=== PATIENT | female | born 1990 | race Caucasian/White ===

== ENCOUNTER 2022-05-30 07:22 | Outpatient (CLI) | payer MEDICAID | END 2022-05-30 07:23 | disposition critical access hospital (66) | LOC: EMS 07:22 | DX: R44.3 Hallucinations, unspecified (principal) | CPT/HCPCS: A0425; A0429; A0999 ==

== ENCOUNTER 2022-05-30 07:49 | Emergency (ER) | payer MEDICAID ==
--- NOTE | 2022-05-30 08:04 | ED Physician Documentation ---
History of Present Illness - Stated complaint Stated Complaint: MHE - History obtained from History obtained from: Patient, EMS - Additonal information Additional information: The patient is brought to the emergency department by EMS from [facility] for chief complaint of hallucinations. The patient has been trying to leave [facility] as she does not want to be there, and states that her mother arranged for her to go for alcohol treatment. Patient has a longstanding history of alcohol abuse and has been at night to it for the last 2 days. She has exhibited some delusional thinking while there but has been fairly functional; however, today she was trying to leave and staff could not redirect her. They gave her a dose of lorazepam as well as Benadryl. The patient states that she just wanted to leave and did not ever want to be there in the first place, but does acknowledge that a couple days of treatment for withdrawal was helpful. She states she is 31 years old and she knows how to take care of herself and does not wish to be "locked up" any longer. She states her mother lives in [place] and she ultimately plans to get back there. [facility] staff has communicated to us that the patient's mother is coming over from [place] to meet with the patient. The medics state that the patient is alert and oriented x3 but that she did occasionally seem to be responding to some internal stimuli. However, she has been cooperative and fairly redirectable. PD PAST MEDICAL HISTORY - Present Medications Home Medications: Ambulatory Orders Medication Instructions Recorded Confirmed Amoxicillin 500 mg PO TID 7 Days #21 cap 05/30/22 PD ED PE NORMAL - Vitals Vital signs reviewed: Yes - General General: Alert and oriented X 3, No acute distress, Well developed/nourished, Other (The patient is polite and redirectable but repeatedly insisting that she wants to leave.) - HEENT HEENT: Atraumatic, PERRL, EOMI, Moist mucous membranes - Neck Neck: Supple, no meningeal sign - Cardiac Cardiac: RRR, No murmur - Respiratory Respiratory: No respiratory distress - Derm Derm: Normal color, Warm and dry, No rash - Extremities Extremities: No deformity - Neuro Neuro: Alert and oriented X 3 (Patient answers all orientation questions. She knows she is not hospital on [facility], knows it is 2022, and knows her name. She is able to recite her mother's address and phone number.), Other (Ambulatory on a steady and narrow based gait; articulates clearly; no gross deficits) - Psych Psych: Normal mood, Normal affect, Other (Patient is able to speak coherently and follow a logical train of thought in her speech. She does occasionally exhibit delusions, as in thinking her next-door neighbor, who is crying out, is a dog) PD Medical Decision Making - ED course Complexity details: considered differential, d/w patient ED course: Despite attempts to redirecting the patient to stay for more thorough evaluation, patient was insistent that she wanted to leave. She was steady on her feet, neurologically intact, and alert and oriented fully. She was able to articulate a plan for what she wanted to do when she left and despite occasional bizarre statements, I did not feel that she was gravely disabled. The patient did not want to stay voluntarily and was not suicidal or homicidal and I did not have legal reason to hold her against her will. As such, I did agree to discharge her, though she was able to talk to her mother on the phone prior to leaving and make a plan to me at the [facility] terminal. The patient did note that she has had some dental pain and was supposed to cone picker a prescription for amoxicillin in [place], but was never able to do so, and so I did give her a paper prescription for this. Departure - Departure Disposition: 01 Home, Self Care Clinical Impression: Pain, dental Alcohol withdrawal Qualifiers: Complication of substance-induced condition: uncomplicated Qualified Code(s): F10.930 - Alcohol use, unspecified with withdrawal, uncomplicated Condition: Stable Instructions: ED Withdrawal Alcohol, ED Tooth Pain Prescriptions: Amoxicillin 500 mg PO TID 7 Days #21 cap Comments: You have decided to sign yourself out of the alcohol detox center and have expressed your desire not to stay in the emergency department for any further treatment, either. Since you are able to answer orientation questions, we are not able to hold you against her will, but it would be best if you have a mental health evaluation with our transition social worker voluntarily to determine how we can best help you as an outpatient. At this point in time you have declined this. You have been treated for alcohol withdrawal for the last couple of days through [facility] and should avoid alcohol to help in your journey getting sober. As far as your dental pain, we have given you a prescription for antibiotics, but you should follow-up with dentist as soon as possible.
[2022-05-30 08:25] VITALS: BP 135/100
== END 2022-05-30 08:14 | disposition home or self-care (01) ==
LOC: ED 07:49
DX: F10.239 Alcohol dependence with withdrawal, unspecified (principal); K08.89 Other specified disorders of teeth and supporting structures
CPT/HCPCS: 99282; 99284